=== PATIENT | male | born 1960 | race Caucasian/White ===

== ENCOUNTER → 2019-11-07 | Outpatient (CLI) | payer OTHER ==
--- NOTE | 2019-11-07 10:40 | KCIC ---
MRI Cervical Spine Without Contrast History: Cervical stenosis, spondylosis, neck pain, hand numbness Technique: Multiplanar, multi sequential noncontrast MR imaging was performed of the cervical spine. Comparison: None Findings: Cervical vertebral body stature is maintained. Cervical cord caliber is within normal limits without defined or expansile signal abnormality. Accurate evaluation for subtle signal change is limited due to motion. There is negligible posterior subluxation of C3 relative to C4. There is moderate degenerative disc disease at C6-7 and to lesser degree at C3-4 and C5-6. Large focus of marrow signal change of the T1 vertebral body is likely a hemangioma, variable T2 and T1 hyperintense signal with associated trabecular thickening, mild associated STIR hyperintense signal. There is some fluid signal associated with the left occipital condylar-C1 articulation and also likely the left lateral mass C1-2 articulation, more likely to be reactive/degenerative in etiology. C2-C3: There is left uncovertebral degenerative change contributing to minimal narrowing of the left neural foramen. Right neural foramen and spinal canal are adequate. C3-C4: There is minimal disc osteophyte complex and bulge. Central canal is minimally narrowed about 9 to 10 mm also with minimal narrowing of the lateral recesses bilaterally. There is bilateral uncovertebral degenerative change, also facet degenerative change greater on the right. There is severe neural foramina compromise bilaterally somewhat greater on the left. C4-C5: There is negligible disc osteophyte complex and bulge. Central canal is adequate about 11 mm. There is uncovertebral degenerative change bilaterally greater on the right. There is facet degenerative change bilaterally greater on the right. There is severe right and probable [id number] left neural foramina compromise, somewhat limited accurate characterization due to motion. C5-C6: There is minimal disc osteophyte complex and bulge. There is buckling of the ligamentum flavum. Central canal is narrowed to about 8 to 9 mm. There is severe facet degenerative change greater on the left. There is bilateral uncovertebral degenerative change. There is severe neural foramina compromise bilaterally somewhat greater on the left. C6-C7: There is minimal disc osteophyte complex and bulge. Central canal is borderline about 10 mm, minimal narrowing of the left lateral recess. There is bilateral uncovertebral and facet degenerative change. There is suspected fairly severe left and probable moderate to severe right neural foramina compromise, somewhat limited accurate characterization due to motion. C7-T1: Spinal canal is adequate. There is bilateral facet degenerative change. Left neural foramen is adequate, likely at least mild narrowing of the right neural foramen. Impression: 1. There is spinal stenosis on the order of 9 to 10 mm at C3-4 and about 8 to 9 mm at C5-C6 as described. 2. There is multilevel facet and uncovertebral degenerative change resulting in multilevel cervical neural foramina compromise, more significant narrowing bilaterally at C3-C4, C5-C6, and C6-7 and on the right at C4-C5. There is a lesser degree of narrowing at other levels such as on the left at C4-5 and on the right at C7-T1. 3. There is multilevel cervical degenerative disc disease greatest at C6-7. There is multilevel mild spondylosis. 4. Large focus of marrow signal change of T1 vertebral body is most likely a hemangioma. 5. There is some fluid signal associated with the left occipital condylar-C1 articulation and also likely the left lateral mass C1-2 articulation, more likely to be reactive/degenerative in etiology. Electronically signed by: Vlad Martin MD (11/07/2019 10:37 AM) [id number]
== END | disposition home or self-care (01) ==
LOC: KCIC MRI 08:33
PROVIDERS: ATTEND Family Medicine
DX: M48.02 Spinal stenosis, cervical region (principal); M50.323 Other cervical disc degeneration at C6-C7 level; M25.78 Osteophyte, vertebrae
CPT/HCPCS: 72141